=== PATIENT | male | born 1940 | race Caucasian/White ===

== ENCOUNTER 2016-05-29 10:58 | Emergency (ER) | payer MEDICARE, OTHER ==
[2016-05-29] MEDS ORDERED: LIDOCAINE HCL 1% MDV SOL SC ONE (11:04)
[2016-05-29] MEDS ORDERED: LIDOCAINE HCL 1% MPF SOL ONE (11:05)
[2016-05-29] MEDS ORDERED: CEFAZOLIN SODIUM 1 GM PDS IV ONE (11:28)
[2016-05-29] MEDS ORDERED: HYDROMORPHONE HCL 2 MG/ML 1 ML SOL IV ONE (11:30)
[2016-05-29 11:35] VITALS: RESP 18
[2016-05-29] MEDS ORDERED: CEFAZOLIN SODIUM 1 GM PDS ONE (11:45)
[2016-05-29] MEDS ORDERED: HYDROMORPHONE HCL 2 MG/ML 1 ML SOL ONE (11:46)
[2016-05-29 12:52] VITALS: TEMP 98
[2016-05-29 12:54] VITALS: BP 140/84; PULSE 80; O2SAT 98
== END 2016-05-29 12:45 | disposition home or self-care (01) | DRG 914 ==
LOC: ED 10:58
DX: S68.521A Partial traumatic transphalangeal amputation of right thumb, initial encounter (principal); W31.2XXA Contact with powered woodworking and forming machines, initial encounter
CPT/HCPCS: 73140; 99285; J0690; J1170

== ENCOUNTER 2018-03-24 09:20 | Emergency (ER) | payer MEDICARE, OTHER ==
[2018-03-24 09:30] VITALS: TEMP 97.4
[2018-03-24] MEDS ORDERED: LIDOCAINE 1% W/EPI MPF 30 ML SOL INFIL ONE (09:55)
[2018-03-24] MEDS ORDERED: LIDOCAINE 1% W/EPI MPF 30 ML SOL ONE (09:56)
[2018-03-24] MEDS ORDERED: CEFAZOLIN SODIUM 1 GM PDS ONE (10:05)
[2018-03-24] MEDS ORDERED: TDAP VACCINE 0.5 ML SUS IM ONE ×2 (10:07→10:21)
[2018-03-24] MEDS ORDERED: CEFAZOLIN SODIUM 1 GM PDS 1 GM in SODIUM CHLORIDE 0.9% 50 ML 50 ML IV SCH (10:15)
[2018-03-24] MEDS ORDERED: BACITRACIN 500 U/GM OIN TOP ONE ×2 (10:32→10:40)
[2018-03-24 10:35] VITALS: BP 143/87; PULSE 91; RESP 91; O2SAT 95
== END 2018-03-24 10:49 | disposition home or self-care (01) | DRG 605 ==
LOC: ED 09:20
DX: S61.511A Laceration without foreign body of right wrist, initial encounter (principal)
CPT/HCPCS: 12004; 90471; 90715; 96365; 99284; J0690; A6402; A9270-GY